=== PATIENT | male | born 1940 | race Caucasian/White ===

== ENCOUNTER 2017-07-14 06:01 | Day surgery (SDC) | payer MEDICARE, OTHER ==
[2017-07-11 10:38] VITALS: BMI 23.1
--- OUTSIDE RECORDS SUMMARY | 2017-07-14 06:03 | XMS | Clinical Summary ---
:1940 Author Organization [facility] Address [address] [place] [address] Phone Care Team Providers Name Role Phone Lazaro Morrison Primary Care Provider tel Allergies Active Allergy Reactions Severity Noted Date Comments No Known Drug Allergies 01/12/2016 Current Medications Prescription Sig. Disp. Refills Start Date End Date Status therapeutic multivitamin Take 1 tablet Active (THERAGRAN) tablet by mouth daily. selenium 200 mcg tablet Take 1 tablet Active by mouth daily. GLUCOSAMINE HCL 1,500 mg 2 Active (GLUCOSAMINE, BULK, MISC) (two) times a day. ibuprofen (ADVIL,MOTRIN) Take 200 mg Active 200 MG tablet by mouth daily. FIBER CHOICE, INULIN, Take 1 tablet Active ORAL by mouth daily. digOXIN (LANOXIN) 250 mcg Take 1 tablet 05/02/2016 Active tablet by mouth daily. omeprazole (PriLOSEC) 40 Take 1 180 capsule 3 06/11/2017 Active MG capsule (40 8 capsuleIndications:Prescr mg total) by iption refill mouth 2 (two) times a day. hydroCHLOROthiazide Take 1 90 capsule 3 06/11/2017 Active (MICROZIDE) 12.5 mg capsule (12.5 capsuleIndications:Prescr mg total) by iption refill mouth daily. valsartan (DIOVAN) 40 MG Take 1 tablet 90 tablet 3 06/11/2017 Active tabletIndications:Prescri (40 mg total) ption refill by mouth daily. rivaroxaban (XARELTO) 20 Take 1 tablet 90 tablet 3 06/11/2017 Active mg (20 mg total) tabletIndications:Prescri by mouth ption refill daily. atorvastatin (LIPITOR) 10 Take 1 tablet 90 tablet 3 06/11/2017 Active MG (10 mg total) tabletIndications:Prescri by mouth ption refill daily. ezetimibe (ZETIA) 10 mg Take 1 tablet 90 tablet 3 06/11/2017 Active tabletIndications:Prescri (10 mg total) ption refill by mouth daily. levothyroxine (SYNTHROID, Take 1 tablet 90 tablet 3 06/11/2017 Active LEVOXYL) 50 mcg (50 mcg tabletIndications:Prescri total) by ption refill mouth every morning. fluticasone (FLONASE) 50 1 spray (50 16 g 5 06/11/2017 Active mcg/actuation nasal mcg total) by sprayIndications:Prescrip Each Nare tion refill route daily. As needed metaxalone (SKELAXIN) 800 Take 1 tablet 90 tablet 3 06/11/2017 Active MG (800 mg tabletIndications:Prescri total) by ption refill mouth 3 (three) times a day. 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 Congestive heart failure, unspecified 04/17/2016 Atrial fibrillation 01/12/2016 Essential hypertension 01/12/2016 Gastroesophageal reflux disease 01/12/2016 HLD (hyperlipidemia) 01/12/2016 Hypothyroidism 01/12/2016 Encounters Date Type Specialty Care Team Description 06/11/2017 Office Visit Internal Medicine Lazaro Morrison Essential hypertension (Primary Dx);Hypothyroidism, unspecified type;Hyperlipidemia, unspecified hyperlipidemia type;Prescription refill 05/21/2017 Orders Only Internal Medicine Aracelis Montilla MA Prescription refill 04/23/2017 Orders Only Internal Medicine Lazaro Morrison Hypothyroidism, unspecified type (Primary Dx);Essential hypertension;Hyperlipide david, unspecified hyperlipidemia type;Screening for malignant neoplasm of prostate 04/23/2017 Telephone Family Medicine Fadumo Robles LVN 04/17/2017 Telephone Family Medicine Fadumo Robles LVN 04/15/2017 Refill Internal Medicine Lazaro Morrison, Prescription refill from Last 3 Months Immunizations Name Dates Previously Given Next Due FLUZONE HIGH-DOSE PF 06/07/2017,05/29/2015 Pneumococcal Polysaccharide 09/15/2009 Tdap 09/15/2009 Zoster 09/15/2010 Family History Medical History Relation Name Comments Alzheimer's disease Father Stroke Father Heart failure Mother Relation Name Status Comments Father Mother Social History Tobacco Use Types Packs/Day Years Used Date Former Smoker Cigarettes Smokeless Tobacco: Never Used Tobacco Cessation:Counseling Given: No Alcohol Use Drinks/Week oz/Week Comments No Sex Assigned at Date Recorded Not on file Last Filed Vital Signs Vital Sign Reading Time Taken Blood Pressure 134/89 06/11/2017 1:30 PM CDT Pulse 65 06/11/2017 1:30 PM CDT Temperature 36.2 C (97.1 F) 08/27/2016 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 Respiratory Rate 18 08/27/2016 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 Oxygen Saturation 98% 08/27/2016 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 Inhaled Oxygen Concentration - - Weight 83.9 kg (185 lb) 06/11/2017 1:30 PM CDT Height 188 cm (6' 2") 06/11/2017 1:30 PM CDT Body Mass Index 23.75 06/11/2017 1:30 PM CDT Plan of Treatment Health Maintenance Due Date Last Done Comments PNEUMOCOCCAL-13 02/08/2004 PNEUMOCOCCAL POLYSACCHARIDE VACCINE AGE 65 Completed 09/15/2009 AND OVER ZOSTER VACCINE Completed 09/15/2010 INFLUENZA VACCINE Completed 06/07/2017, 05/29/2015 Implants Implanted Type 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 [id number] / Electrodes or [id number] Accessories Envlp Impl Crdvrtr Dfb Antbctrl Fully Resorb Lg Aigissrx R - [id number] Cardiovascular N/A: N/A [employer] [id number] / Implanted:08/26/2016 (Quantity not on file) Implants / Visia Af Mri Surescan Vr Device - [id number] Defibrillator ICD N/A: N/A [employer] [facility] [id number] / Implanted:08/26/2016 (Quantity not on file) [employer] / Med Lead [id number] - [id number] - [id number] IPM CARDIAC DEFIB N/A: N/A [employer] RACQUEL 02/19/2018 [id number] / Implanted:Qty: 1 on 04/17/2016 by Elis Landeros Jr., MD [employer]. [id number] / [id number] [place] [id number] - [id number] IPM SUPPLIES N/A: N/A [employer] RACQUEL [id number] / Implanted:04/17/2016 (Quantity not on file) PATIENT BILLABLE [employer]. / Results Not on filefrom Last 3 Months Insurance Payer Benefit Plan / Group Subscriber ID Type Phone Address MEDICARE MEDICARE PART A AND B [id number] Medicare [place], [place] U[employer] INDEMNITY [id number] Indemnity Home: [id number] [phone] [place] [phone]
[2017-07-14] MEDS ORDERED: Lidocaine 1% PF 5 ML VIAL ONE (08:31)
[2017-07-14] MEDS ORDERED: PHENYLEPHRINE-NS 100 MCG/ML 10 ML SYRINGE ONE (08:31)
--- NOTE | 2017-07-14 09:23 | OP ---
PREOPERATIVE DIAGNOSIS: Dysphagia. FAMILY HISTORY: Colon polyps. DESCRIPTION OF THE PROCEDURE: After informed consent was obtained, the patient placed in the left l ateral decubitus position. Anesthesia was administered per the Anesthesia Department. Forward-view ing endoscope was inserted into the esophagus under direct visualization with ease and passed to the duodenal bulb with ease. There in the duodenal bulb, was a very tight stricture which did not allo w passage of the diagnostic endoscope. The lumen appeared to be 2-3 mm. A 12 mm pyloric balloon wa s put across the area and inflated for 1 minute to stage 2, deflated and removed. The stricture was well dilated and allowed passage of the endoscope. The second portion of the duodenum was normal. Duodenal bulb was otherwise normal. There was a small amount of retained food in the duodenal bulb . The pylorus, antrum, body, fundus, and cardia were normal. Retroflexion in the stomach showed a medium sized hiatal hernia. The esophagus was normal. A 54-Austrian Phillips dilator was passed witho ut resistance. Reinsertion of the endoscope showed no post-dilatation changes. ASSESSMENT: 1. Duodenal stricture, status post dilatation. 2. Medium sized hiatal hernia. 3. Otherwise normal esophagogastroduodenoscopy. RECOMMENDATIONS: 1. Continue omeprazole. 2. Proceed with colonoscopy. PROCEDURE IN DETAIL: After informed consent was obtained, the patient was placed in the left latera l decubitus position. Anesthesia was administered per the Anesthesia Department. Forward-viewing e ndoscope was inserted into the rectum after perianal inspection and rectal exam were normal. It was passed to the cecum with ease. The cecum, ileocecal valve, and appendiceal orifice were normal. T he terminal ileum was normal. The ascending was normal except for small 4 mm polyp that was seen an d removed with cold snare polypectomy. The remainder of the ascending and transverse were normal. The descending and sigmoid were normal except for diverticulosis coli. The rectum was normal. Retr oflexion in rectum was normal. ASSESSMENT: 1. Small ascending colon polyp - status post polypectomy. 2. Left-sided diverticulosis coli. RECOMMENDATIONS: Await histopathology.
== END 2017-07-14 10:28 | disposition home or self-care (01) ==
LOC: SDC 06:01
PROVIDERS: ATTEND Internal Medicine Gastroenterology
PROC: 0DBK8ZX Excision of Ascending Colon, Via Natural or Artificial Opening Endoscopic, Diagnostic (ICD-10-PCS; principal; 2017-07-14)
PROC: 0D798ZZ Dilation of Duodenum, Via Natural or Artificial Opening Endoscopic (ICD-10-PCS; 2017-07-14)
DX: Z12.11 Encounter for screening for malignant neoplasm of colon (principal); K63.5 Polyp of colon; K57.30 Diverticulosis of large intestine without perforation or abscess without bleeding; R13.10 Dysphagia, unspecified; K31.5 Obstruction of duodenum; K44.9 Diaphragmatic hernia without obstruction or gangrene; Z90.79 Acquired absence of other genital organ(s); Z98.890 Other specified postprocedural states; Z83.79 Family history of other diseases of the digestive system
CPT/HCPCS: 43245; 45385; 88305; 93005; C1726; 93010; J2001